=== PATIENT | male | born 1985 | race Caucasian/White ===

== ENCOUNTER 2017-08-06 07:27 | Emergency (ER) | payer BC ==
[~2017-08-06] VITALS: Ht 188 cm; Wt 89.8 kg
--- NOTE | 2017-08-06 07:35 | NUR ---
AAOX3, CAME TO ER C/O UPPER ABDOMINAL PAIN WITH N/V DENIES DIARRHEA SINCE 4 AM. SKIN IS WARM AND DRY. RESP IS EVEN AND UNLABORED WITH NAD NOTED. AWAITING MD FOR EVAL.
--- NOTE | 2017-08-06 07:41 | NUR ---
STORM, STUDENT PA AT BS FOR EVAL.
[2017-08-06] MEDS ORDERED: ONDANSETRON HCL/PF 4 MG/2 ML VIAL ONE (07:59)
[2017-08-06] MEDS ORDERED: MAG HYDROX/AL HYDROX/SIMETH 30 ML UDC ONE (07:59)
[2017-08-06] MEDS ORDERED: LIDOCAINE VISCOUS 2% UD 15 ML UDC ONE (07:59)
[2017-08-06] MEDS ORDERED: LIDOCAINE 2% JEL UROJET 10 ML MM ONE (08:00)
[2017-08-06] MEDS ORDERED: ONDANSETRON HCL/PF 4 MG/2 ML VIAL IVP ONE (08:00)
[2017-08-06] MEDS ORDERED: MAG HYDROX/AL HYDROX/SIMETH 30 ML UDC PO ONE (08:00)
[2017-08-06] MEDS ORDERED: LIDOCAINE VISCOUS 2% UD 15 ML UDC MM ONE (08:00)
[2017-08-06] MEDS ORDERED: IV NS 0.9% 1,000 ML BAG IV ONE (08:00)
[2017-08-06 08:14] LABS: BASOPHILS % (AUTO) 0.3 % (0.0-2.0); EOSINOPHILS % (AUTO) 0.2 % (0.0-6.0); HEMATOCRIT 49 % (39-51); HEMOGLOBIN 16.1 g/dL (13.5-17.5); LYMPHOCYTES # (AUTO) 2.5 /CMM (0.8-4.8); LYMPHOCYTES % (AUTO) 18.3 % (20.0-44.0); MEAN CORPUSCULAR HEMOGLOBIN 28 PG (26.0-33.0); MEAN CORPUSCULAR HGB CONC 33 g/dl (31.0-36.0); MEAN CORPUSCULAR VOLUME 85 fL (80-96); MONOCYTES # (AUTO) 0.5 /CMM (0.1-1.30); MONOCYTES % (AUTO) 3.8 % (2.0-12.0); NEUTROPHILS # (AUTO) 10.6 /CMM (1.8-8.9); NEUTROPHILS % (AUTO) 77.4 % (43.0-81.0); PLATELET COUNT (AUTO) 175 /CMM (150-450); RDW COEFFICIENT OF VARIATION 12.6 (11.5-15.0); WHITE BLOOD COUNT (AUTO) 13.8 K/uL (4.3-11.0)
[2017-08-06 08:22] LABS: CALCIUM, SERUM 8.9 mg/dL (8.5-10.1); CREATININE 0.9 mg/dL (0.6-1.3); POTASSIUM 3.9 mmol/L (3.5-5.1)
[2017-08-06 08:27] LABS: ALBUMIN 4.2 g/dL (3.4-5.0); BILIRUBIN,DIRECT 0.1 mg/dL (0.0-0.2); BILIRUBIN,TOTAL 0.5 mg/dL (0.2-1.0)
[2017-08-06 11:22] VITALS: BP 112/66
--- NOTE | 2017-08-06 11:22 | NUR ---
IV removed. Catheter intact and site benign. Pressure and 4x4 applied to site. No bleeding noted.Patient discharged to home in stable condition. Written and verbal after care instructions given. Patient verbalizes understanding of instruction.
== END 2017-08-06 11:23 | disposition home or self-care (01) ==
LOC: EDBD 07:29 → ER 07:29
DX: R10.12 Left upper quadrant pain (principal)
CPT/HCPCS: 36415; 76700; 80048; 80076; 85025; 96361; 96374; 99285; A4606; J2405; J7030 ×2; Z7610